=== PATIENT | male | born 1995 | race Caucasian/White ===

== ENCOUNTER 2019-10-14 21:20 | Emergency (ER) | payer SELFPAY ==
[~2019-10-14] VITALS: Ht 177.8 cm; Wt 99.8 kg
[2019-10-15] MEDS ORDERED: IBUPROFEN 800 MG TABLET PO ONE
[2019-10-15] MEDS ORDERED: IBUPROFEN 800 MG TABLET ONE (00:04)
--- NOTE | 2019-10-15 00:47 | NUR ---
Patient discharged to home in stable conditon. Written and verbal after care instructions given. Patient verbalizes understanding of instructions. Pt ambulated out of ER with steady gait, no acute signs of distress, VSS, all belongings taken.
[2019-10-15 00:49] VITALS: BP 118/90
== END 2019-10-15 00:49 | disposition home or self-care (01) ==
LOC: ER 21:20
DX: J11.1 Influenza due to unidentified influenza virus with other respiratory manifestations (principal); F17.200 Nicotine dependence, unspecified, uncomplicated
CPT/HCPCS: 87400